=== PATIENT | female | born 1945 | race Caucasian/White ===

== ENCOUNTER 2017-01-31 11:36 | Emergency (ER) | payer MEDICARE, MEDICAID ==
[~2017-01-31] VITALS: Ht 157.5 cm; Wt 47.0 kg
[~2017-01-31 11:36] MED LIST: BACT800T5 PO; LEVE500 PO; LISI10TA PO; METH-60 XX; PRIM50TA PO
[2017-01-31 11:39] VITALS: BP 185/84; PULSE 87; RESP 18; TEMP 98.7; O2SAT 97
[2017-01-31] MEDS ORDERED: KEPP10002 PO (11:55)
[2017-01-31] MEDS ORDERED: LISI10TA3 PO (11:55)
[2017-01-31] MEDS ORDERED: CITA40TA4 PO (11:55)
[2017-01-31] MEDS ORDERED: ACET500C PO (11:55)
[2017-01-31] MEDS ORDERED: SODIUM CHLORIDE 0.9% FLUSH 10 ML FLUSH IV FLUSH PRN (12:15)
--- NOTE | 2017-01-31 12:21 | PD ---
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 The patient is brought here by her son who is also her caregiver and provides much of the history. 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 The patient has apparently been complaining of bilateral arm pain for over 6 months. Denies any injury or trauma. States she also complains of right leg pain over the past several months as well. No injury or trauma. Patient reports the pain is constant. Denies any aggravating or alleviating factors. She's been taking Tylenol with minimal improvement of symptoms. PCP is Dr. Baron. No other complaints. PFSH Past Medical History Arthritis: Yes Asthma: No Blood Disorders: No Heart Rhythm Problems: No Cancer: No Cardiovascular Problems: No High Cholesterol: Yes Chemotherapy: No Chest Pain: No Congestive Heart Failure: No COPD: No Cerebrovascular Accident: Yes Diabetes: No Endocrine: No Genitourinary: No Headaches: Yes Hypertension: Yes Immune Disorder: No Implanted Vascular Access Dvce: No Musculoskeletal: Yes Neurologic: Yes Psychiatric: No Reproductive: No Respiratory: No Migraines: No Radiation Therapy: No Seizures: Yes Sleep Apnea: Yes Thyroid Disease: No PNEUMOCCOCAL Vaccine (Year): 3 ?: Not Menopausal: Yes Past Surgical History Abdominal Surgery: No AICD: No Body Medical Devices: CLIPPING BRAIN ANEURYSMS Cardiac Surgery: No Ear Surgery: No Endocrine Surgery: No Eye Surgery: No Genitourinary Surgery: No Gynecologic Surgery: No Joint Replacement: No Neurologic Surgery: Yes (aneursym surgery /brain) Oral Surgery: No Pacemaker: No Thoracic Surgery: Yes Other Surgery: Yes ([employer]IST SHUNT) Social History Alcohol Use: No Tobacco Use: Yes (09/11 PPD) Substance Use: No Allergies-Medications (Allergen,Severity, Reaction): Coded Allergies: Dilantin (Verified Allergy, Severe, 09/11/15) Aspirin (Verified Allergy, Mild, NO BLOOD THINNERS DUE TO ANEURYSM, 09/11/15 ) Reported Meds & Prescriptions Reported Meds & Active Scripts Active Lortab (Hydrocodone-Acetaminophen) 5-325 Mg Tab 1 Tab PO Q12HR PRN Reported Citalopram (Citalopram Hydrobromide) 40 Mg Tab 40 Mg PO DAILY Lisinopril 10 Mg Tab 10 Mg PO DAILY Keppra (Levetiracetam) 1,000 Mg Tab 1,000 Mg PO BID Acetaminophen 500 Mg Cap 500 Mg PO BID Review of Systems Except as stated in HPI: all other systems reviewed are Neg Physical Exam Narrative GENERAL: Thin, clinically dry appearing elderly female in no acute distress. SKIN: Warm and dry without any obvious rashes or lesions. HEAD: Normocephalic and atraumatic. EYES: No injection, drainage, or hyphema noted. PERRLA. EOMI. ENT: No nasal drainage noted. Oropharynx is clear. NECK: Supple and the trachea is midline. CARDIOVASCULAR: Regular rate and rhythm. RESPIRATORY: Breath sounds are equal bilaterally with no accessory muscle use, wheezing, rhonchi, or crackles. GASTROINTESTINAL: Abdomen is soft, non-tender, and nondistended. MUSCULOSKELETAL: With range of motion exercises the patient is able to identify that her pain is in her bilateral elbows and her right knee specifically. No erythema, warmth. No obvious deformities, swelling, cyanosis, or ecchymosis is present throughout the upper and lower extremities. Patient has full range of motion without any signs of neurovascular compromise. Strength 5/5 upper and lower extremities equal bilaterally. NEUROLOGICAL: Awake, alert, and oriented. Normal speech and gait. Cranial nerves are grossly intact. Data Data Last Documented VS Vital Signs Date Time Temp Pulse Resp B/P Pulse Ox O2 Delivery O2 Flow Rate FiO2 01/31/17 13:39 75 16 181/87 96 Room Air 01/31/17 11:39 98.7 Orders Basic Metabolic Panel (Bmp) (01/31/17 12:15) Complete Blood Count With Diff (01/31/17 12:15) Iv Access Insert/Monitor (01/31/17 12:15) Ecg Monitoring (01/31/17 12:15) Oximetry (01/31/17 12:15) Sodium Chloride 0.9% Flush (Ns Flush) (01/31/17 12:15) Creatine Kinase (Cpk) (01/31/17 12:15) Sodium Chlorid 0.9% 500 Ml Inj (Ns 500 M (01/31/17 12:30) Labs Laboratory Tests Test 01/31/17 12:20 White Blood Count 9.1 TH/MM3 Red Blood Count 3.65 MIL/MM3 Hemoglobin 13.0 GM/DL Hematocrit 39.0 % Mean Corpuscular Volume 106.8 FL Mean Corpuscular Hemoglobin 35.6 PG Mean Corpuscular Hemoglobin 33.3 % Concent Red Cell Distribution Width 14.9 % Platelet Count 305 TH/MM3 Mean Platelet Volume 7.3 FL Neutrophils (%) (Auto) 62.9 % Lymphocytes (%) (Auto) 28.3 % Monocytes (%) (Auto) 7.3 % Eosinophils (%) (Auto) 0.9 % Basophils (%) (Auto) 0.6 % Neutrophils # (Auto) 5.7 TH/MM3 Lymphocytes # (Auto) 2.6 TH/MM3 Monocytes # (Auto) 0.7 TH/MM3 Eosinophils # (Auto) 0.1 TH/MM3 Basophils # (Auto) 0.1 TH/MM3 CBC Comment DIFF FINAL Differential Comment Sodium Level 145 MEQ/L Potassium Level 4.0 MEQ/L Chloride Level 109 MEQ/L Carbon Dioxide Level 26.8 MEQ/L Anion Gap 9 MEQ/L Blood Urea Nitrogen 15 MG/DL Creatinine 0.72 MG/DL Estimat Glomerular Filtration 80 ML/MIN Rate Random Glucose 101 MG/DL Calcium Level 9.5 MG/DL Total Creatine Kinase 32 U/L MDM Medical Decision Making Medical Screen Exam Complete: Yes Emergency Medical Condition: Yes Differential Diagnosis Rheumatoid arthritis versus osteoarthritis versus degenerative changes versus rhabdomyolysis Narrative Course 71-year-old female presents to the emergency department for several month history of bilateral arm and right leg pain. Patient is afebrile, vital signs are stable. No injury or trauma. Physical examination does not reveal acute inflammation with erythema or warmth. She does have painful range of motion in bilateral elbows and right knee. CBC is unremarkable. BMP is unremarkable. CPK is unremarkable. Patient has remained stable and without complaint while here in the emergency department. I suspect that the patient's pain is secondary to chronic degenerative joint changes. She'll be given a short course of Lortab for her pain. Instructed follow-up with her PCP. Patient and family verbalized understanding and agreement with treatment plan. I discussed the case with my attending physician Dr. Ervin who is aware of the patients history, physical examination findings, and treatment plan. Diagnosis Primary Impression: Multiple joint pain Referrals: Primary Care Physician Patient Instructions: General Instructions Additional Instructions: Take medications as prescribed with food and a full glass of water. Do not take Lortab with alcohol or while driving. Be careful with the medication as it can make you dizzy or weak. Follow-up with your Primary Care Physician. Return to the ED for any acute worsening of symptoms. Med/Other Pt SpecificInfo: Prescription(s) given Scripts Hydrocodone-Acetaminophen (Lortab)5-325 Mg Tab1 Tab PO Q12HR PRN (PAIN GREATER THAN 6) #14 TAB Ref 0 Prov:Sam Ervin MD 01/31/17 Disposition: 01 DISCHARGE HOME Condition: Stable Shayy Muniz January 31, 2017 12:21
[2017-01-31 12:25] VITALS: O2SAT 95
[2017-01-31] MEDS ORDERED: SODIUM CHLORID 0.9% 500 ML INJ 500 ML IV ONE (12:30)
[2017-01-31 12:39] LABS: AUTOMATED NEUTROPHIL # 5.7 TH/MM3 (1.8-7.7); BASOPHIL # 0.1 TH/MM3 (0-0.2); BASOPHIL % 0.6 % (0.0-2.0); EOSINOPHIL # 0.1 TH/MM3 (0-0.4); EOSINOPHIL % 0.9 % (0.0-4.0); HEMO FLAGS DIFF FINAL; LYMPH % 28.3 % (9.0-44.0); LYMPHOCYTE # 2.6 TH/MM3 (1.0-4.8); MEAN CELL VOLUME 106.8 FL (80.0-100.0); MEAN CORPUSCULAR HEMOGLOBIN 35.6 PG (27.0-34.0); MEAN CORPUSCULAR HGB CONC 33.3 % (32.0-36.0); MONO % 7.3 % (0.0-8.0); NEUT % 62.9 % (16.0-70.0); PLATELET COUNT 305 TH/MM3 (150-450); RED BLOOD COUNT 3.65 MIL/MM3 (4.00-5.30); RED CELL DISTRIBUTION WIDTH 14.9 % (11.6-17.2); WHITE BLOOD COUNT 9.1 TH/MM3 (4.0-11.0)
[2017-01-31 13:07] LABS: BICARBONATE 26.8 MEQ/L (21.0-32.0)
[2017-01-31] MEDS ORDERED: HYDR-3533 PO (13:23)
--- NOTE | 2017-01-31 13:26 | PD ---
Data Data Last Documented VS Vital Signs Date Time Temp Pulse Resp B/P Pulse Ox O2 Delivery O2 Flow Rate FiO2 01/31/17 12:25 95 Room Air 01/31/17 11:39 98.7 87 18 185/84 Orders Basic Metabolic Panel (Bmp) (01/31/17 12:15) Complete Blood Count With Diff (01/31/17 12:15) Iv Access Insert/Monitor (01/31/17 12:15) Ecg Monitoring (01/31/17 12:15) Oximetry (01/31/17 12:15) Sodium Chloride 0.9% Flush (Ns Flush) (01/31/17 12:15) Creatine Kinase (Cpk) (01/31/17 12:15) Sodium Chlorid 0.9% 500 Ml Inj (Ns 500 M (01/31/17 12:30) Labs Laboratory Tests Test 01/31/17 12:20 White Blood Count 9.1 TH/MM3 Red Blood Count 3.65 MIL/MM3 Hemoglobin 13.0 GM/DL Hematocrit 39.0 % Mean Corpuscular Volume 106.8 FL Mean Corpuscular Hemoglobin 35.6 PG Mean Corpuscular Hemoglobin 33.3 % Concent Red Cell Distribution Width 14.9 % Platelet Count 305 TH/MM3 Mean Platelet Volume 7.3 FL Neutrophils (%) (Auto) 62.9 % Lymphocytes (%) (Auto) 28.3 % Monocytes (%) (Auto) 7.3 % Eosinophils (%) (Auto) 0.9 % Basophils (%) (Auto) 0.6 % Neutrophils # (Auto) 5.7 TH/MM3 Lymphocytes # (Auto) 2.6 TH/MM3 Monocytes # (Auto) 0.7 TH/MM3 Eosinophils # (Auto) 0.1 TH/MM3 Basophils # (Auto) 0.1 TH/MM3 CBC Comment DIFF FINAL Differential Comment Sodium Level 145 MEQ/L Potassium Level 4.0 MEQ/L Chloride Level 109 MEQ/L Carbon Dioxide Level 26.8 MEQ/L Anion Gap 9 MEQ/L Blood Urea Nitrogen 15 MG/DL Creatinine 0.72 MG/DL Estimat Glomerular Filtration 80 ML/MIN Rate Random Glucose 101 MG/DL Calcium Level 9.5 MG/DL Total Creatine Kinase 32 U/L MDM Supervised Visit with MARIA E: Yes Narrative Course The history, exam, and medical decision-making in the associated mid-level provider note were completed with my assistance. I reviewed and agree with the findings presented. I attest that I had a [id number] encounter with the patient on the same day, and personally performed and documented my assessment and findings in the medical record. *My assessment and Findings: 71-year-old woman with a history of recurrent arthritis, off meds, here with joint pain in the upper and lower extremities. Looks well. No evidence of active inflammation or joint infection. Labs are unremarkable. Recommend supportive treatment. Diagnosis Primary Impression: Multiple joint pain Referrals: Primary Care Physician Patient Instructions: General Instructions Additional Instruction: Take medications as prescribed with food and a full glass of water. Do not take Lortab with alcohol or while driving. Be careful with the medication as it can make you dizzy or weak. Follow-up with your Primary Care Physician. Return to the ED for any acute worsening of symptoms. Scripts Hydrocodone-Acetaminophen (Lortab)5-325 Mg Tab1 Tab PO Q12HR PRN (PAIN GREATER THAN 6) #14 TAB Ref 0 Prov:Sam Ervin MD 01/31/17 Disposition: 01 DISCHARGE HOME Condition: Stable Sam Ervin MD January 31, 2017 13:26
[2017-01-31 13:39] VITALS: BP 181/87; PULSE 75; RESP 16; O2SAT 96
== END 2017-01-31 13:47 | disposition home or self-care (01) ==
LOC: NEPD 11:36
DX: M79.602 Pain in left arm (principal); M79.601 Pain in right arm; M25.50 Pain in unspecified joint; I10 Essential (primary) hypertension; M06.9 Rheumatoid arthritis, unspecified; I72.9 Aneurysm of unspecified site; F17.210 Nicotine dependence, cigarettes, uncomplicated; F03.90 Unspecified dementia, unspecified severity, without behavioral disturbance, psychotic disturbance, mood disturbance, and anxiety; M19.90 Unspecified osteoarthritis, unspecified site; Z86.73 Personal history of transient ischemic attack (TIA), and cerebral infarction without residual deficits
CPT/HCPCS: 80048; 82550; 85025; 96360; 99284; J7040

== ENCOUNTER 2017-02-21 13:34 | Emergency (ER) | payer MEDICARE, MEDICAID ==
[~2017-02-21] VITALS: Ht 154.9 cm; Wt 47.0 kg
[~2017-02-21 13:34] MED LIST changes: +ACET500C PO; -BACT800T5 PO; +CITA40TA4 PO; +HYDR-3533 PO; +KEPP10002 PO; -LEVE500 PO; -LISI10TA PO; +LISI10TA3 PO; -METH-60 XX; -PRIM50TA PO
[2017-02-21 13:36] VITALS: BP 210/98; PULSE 96; RESP 20; TEMP 98.4; O2SAT 97
--- NOTE | 2017-02-21 13:48 | PD ---
Physical Exam Time Seen by Provider: 13:44 Narrative 71 year old female here with son for evaluation of right lower extremity wound. Patient is unsure how or when the wound originated. Son became concerned this morning because the wound appeared "yellow". Patient denies fevers, chills, or pain in the extremity. Patient seen at triage desk. VS reviewed. Patient waiting bed placement. Data Data Last Documented VS Vital Signs Date Time Temp Pulse Resp B/P Pulse Ox O2 Delivery O2 Flow Rate FiO2 02/21/17 13:36 98.4 96 20 210/98 97 Room Air [facility] Supervised Visit with MARIA E: Elizabeth Doll Feb 21, 2017 13:48
[2017-02-21 14:21] VITALS: BP 211/96; PULSE 84; RESP 14; TEMP 98.8; O2SAT 97
[2017-02-21] MEDS ORDERED: MAPA500T PO (14:24)
--- NOTE | 2017-02-21 14:25 | PD ---
HPI . right leg possible infection and HTN Chief Complaint: Skin Problem Time Seen by Provider: 14:25 Travel History International Travel<30 days: No Contact w/Intl Traveler<30days: No Traveled to known affect area: No History of Present Illness HPI 71-year-old female with history of hypertension, history of CVA secondary aneurysm rupture, rheumatoid arthritis here with her son. Son reports that patient has a small irritated area on her right anterior ramirez that has been present for unknown duration and he was concerned about infection. He decided to bring her into the emergency department. He also tells me her blood pressures elevated, which she was unaware of. She does take blood pressure medications, but she and he are uncertain whether or not she has actually taken her medications. She denies any fever or chills. She has no complaints of recent injury to her lower extremities. She denies any itching or rash. She denies any chest pain, nausea, vomiting, shortness of breath or diaphoresis. Overall she feels well and just wanted to know if her leg was infected. PFSH Past Medical History Arthritis: Yes Asthma: No Blood Disorders: No Heart Rhythm Problems: No Cancer: No Cardiovascular Problems: Yes (HTN) High Cholesterol: Yes Chemotherapy: No Chest Pain: No Congestive Heart Failure: No COPD: No Cerebrovascular Accident: Yes Diabetes: No Endocrine: No Genitourinary: No Headaches: Yes Hypertension: Yes Immune Disorder: No Implanted Vascular Access Dvce: No Musculoskeletal: Yes Neurologic: Yes Psychiatric: No Reproductive: No Respiratory: No Migraines: No Radiation Therapy: No Seizures: Yes Sleep Apnea: Yes Thyroid Disease: No PNEUMOCCOCAL Vaccine (Year): 3 Menopausal: Yes Past Surgical History Abdominal Surgery: No AICD: No Body Medical Devices: CLIPPING BRAIN ANEURYSMS Cardiac Surgery: No Ear Surgery: No Endocrine Surgery: No Eye Surgery: No Genitourinary Surgery: No Gynecologic Surgery: No Joint Replacement: No Neurologic Surgery: Yes (aneursym surgery /brain) Oral Surgery: No Pacemaker: No Thoracic Surgery: Yes Other Surgery: Yes ([employer]ARD SW[employer]ER SHUNT) Social History Alcohol Use: No Tobacco Use: Yes (2 PPD) Substance Use: No Allergies-Medications (Allergen,Severity, Reaction): Coded Allergies: Dilantin (Verified Allergy, Severe, 02/21/17) Aspirin (Verified Allergy, Mild, NO BLOOD THINNERS DUE TO ANEURYSM, ) Reported Meds & Prescriptions Reported Meds & Active Scripts Active Lortab (Hydrocodone-Acetaminophen) 5-325 Mg Tab 1 Tab PO Q12HR PRN Reported Mapap (Acetaminophen) 500 Mg Tab 500 Mg PO BID PRN Lisinopril 10 Mg Tab 10 Mg PO DAILY Keppra (Levetiracetam) 1,000 Mg Tab 1,000 Mg PO BID Review of Systems General / Constitutional: No: Fever Eyes: No: Visual changes HENT: No: Headaches Cardiovascular: No: Chest Pain or Discomfort Respiratory: No: Shortness of Breath Gastrointestinal: No: Abdominal Pain Genitourinary: No: Dysuria Musculoskeletal: No: Pain Skin: Positive Other (right anterior ramirez irritation ), No Rash Neurologic: No: Weakness Psychiatric: No: Depression Endocrine: No: Polydipsia Hematologic/Lymphatic: No: Easy Bruising Physical Exam Narrative GENERAL: AAO x 3, no acute distress, Well-nourished, well-developed patient. SKIN: Warm and dry. No visible rashes or bruising. small gaurav sized blister that is healing, no evidence of purulence, drainage, erythema or edema, no temperature variation HEAD: Normocephalic and atraumatic. EYES: No scleral icterus. No injection or drainage. EOM intact, PERRLA ENT: No nasal drainage noted. Mucous membranes pink. Airway patent. NECK: Supple, trachea midline. No JVD. CARDIOVASCULAR: Regular rate and rhythm without murmurs, gallops, or rubs. RESPIRATORY: Breath sounds equal bilaterally. No accessory muscle use. No rhonchi or rales. GASTROINTESTINAL: visual inspection normal EXTREMITIES: No cyanosis or edema. BACK: Nontender without obvious deformity. No CVA tenderness. NEURO: CN II-12 intact, PSYCH: AAO x 3, normal affect. Data Data Last Documented VS Vital Signs Date Time Temp Pulse Resp B/P Pulse Ox O2 Delivery O2 Flow Rate FiO2 02/21/17 14:31 80 14 168/80 98 Room Air 02/21/17 14:21 98.8 MDM Medical Decision Making Medical Screen Exam Complete: Yes Emergency Medical Condition: Yes Medical Record Reviewed: Yes Differential Diagnosis skin blister, less likely cellulitis, less likely abscess, SCC, BCC, HT, medication noncompliance, Narrative Course This is a 71-year-old female here with complaints of a possible infection to her right anterior ramirez. The exact duration of this lesion is unknown. I have done a complete examination and there is no evidence of infection. This appears to be a healing blister. I do recommend that she follow-up with her primary care provider and/or a respiratory director as she has several lesions scattered on her body that are suspicious for BCC and possible SCC. I explained that we do not perform skin biopsy in the ED and the son seems upset. Her bp was initially elevated, but has come down significantly. Her questions regarding her medication compliance. I recommend that she follow-up with her primary care provider regarding this issue. I have discussed with the son and he seems unimpressed. I've explained to him that eventually she does not require antibiotics or any adjustment of her medication. These are all issues that need to be addressed with her primary care provider. Diagnosis Primary Impression: Blister Additional Impression: HTN (hypertension) Qualified Code: I10 - Essential hypertension Patient Instructions: General Instructions Additional Instructions: Please return to emergency department if your symptoms return or worsen. Follow up with your primary care provider. Take medications as prescribed. As we discussed, please follow up with your primary care doctor. Med/Other Pt SpecificInfo: Prescription(s) given Disposition: 01 DISCHARGE HOME Condition: Stable Taisha Lopez Feb 21, 2017 14:25
[2017-02-21 14:31] VITALS: BP 168/80; PULSE 80; RESP 14; O2SAT 98
== END 2017-02-21 15:03 | disposition home or self-care (01) ==
LOC: NEPD 13:34
DX: S80.821A Blister (nonthermal), right lower leg, initial encounter (principal); I10 Essential (primary) hypertension; X58.XXXA Exposure to other specified factors, initial encounter
CPT/HCPCS: 99281